=== PATIENT | male | born 1985 | race Caucasian/White ===

== ENCOUNTER 2019-01-04 15:43 | Emergency (ER) | payer BC ==
[~2019-01-04] VITALS: Ht 175.3 cm; Wt 75.3 kg
[2019-01-04 16:00] VITALS: Ht 175.3 cm; Wt 75.3 kg
[2019-01-04 19:25] VITALS: BP 112/73
== END 2019-01-04 19:25 | disposition home or self-care (01) ==
LOC: ED 15:43
DX: N48.1 Balanitis (principal)
CPT/HCPCS: 82962